=== PATIENT | male | born 1940 | race Caucasian/White ===

== ENCOUNTER 2024-02-18 09:10 | Emergency (ER) | payer OTHER, SELFPAY ==
[2024-02-18 09:13] VITALS: BP 143/80
--- NOTE | 2024-02-18 09:30 | ED.GENMED ---
History of Present Illness
General
Chief Complaint: Chest Pain
Time Seen by Provider: 02/18/24 09:30
Travel History
Have you had any contact with someone who has COVID-19?: No
Do you have any symptoms of coronavirus? Fever > 100 degrees, chills, cough, shortness of breath, sore throat, loss of taste or smell, muscle aches, or headache?: No
History of Present Illness
History of Present Illness:
HPI: Patient presents with chest discomfort. This is described as intermittent over the past week. He states it feels like 'like when you stick a finger in a electrical socket' and reports somewhat of a vibration type of sensation more to the left
side of the chest. He has no exertional symptoms. He has no shortness of breath. Earlier this morning he had a sensation almost like he was 'shocked'. He was recently started on Rinvoq for eczema and wonders if this could be a contributing
factor for his symptoms.
EXAM:
GENERAL: Well appearing in no distress
HEENT: Moist oral mucosa, somewhat hard of hearing
CARDIOVASCULAR: No murmurs, normal heart rate, regular rhythm, No chest wall tenderness
PULMONARY: No respiratory distress, breath sounds are clear and equal
ABDOMEN: Soft with no peritoneal signs, no tenderness
NEUROLOGIC: Excellent strength all extremities, no coordination deficits
PSYCHIATRIC: Appropriate mental status, normal insight and judgement
EXTREMITIES: Nontender, no edema, moves all extremities equally
SKIN: No rash, no lesions
TIME OF INITIAL ENCOUNTER: 9:30 AM
NUMBER AND COMPLEXITY OF PROBLEMS ADDRESSED AT THE ENCOUNTER
� Chronic conditions affecting care: Hyperlipidemia, prostate cancer, anxiety
� Acute Exacerbation and/or Progression of Chronic Illness: This is an acute problem
� Differential Diagnosis includes: Noncardiac chest pain, chest wall pain, ACS, highly doubt pulmonary etiology given lack of shortness of breath, paresthesias from electrolyte abnormality, medication reaction
AMOUNT AND/OR COMPLEXITY OF DATA TO BE REVIEWED AND ANALYZED
� I performed an independent evaluation of and my interpretation is:
EKG: Sinus 70, nonspecific ST abnormality, no significant change from 07/12/2019
CT:
X-rays:
Laboratory Studies: White count 8.6, hemoglobin 10.0, hemoglobin in 2019 was 12.1, chemistries unremarkable but total bili is up slightly at 1.9, troponin 0.025
Other:
� Review of other/old records: I reviewed records, the patient had 2 negative troponins in June 2019
� Clinical information was obtained by an independent historian: None needed
� Prescriptions/Medications Considered but not given:
� Further testing considered but not performed:
RISK OF COMPLICATIONS AND/OR MORBIDITY OR MORTALITY OF PATIENT MANAGEMENT
� Social determinants of health affecting care: Lives at home
� Discussion with other providers:
� Escalation of care including admission/observation vs risk of discharge considered: According to my reference, there is no report of paresthesias/chest pain regarding Rinvoq use. I favor more of a noncardiac etiology as he
describes the sensation as more of a vibration/shock sensation. He has no exertional symptoms. On reassessment at 11:10 AM, the patient reports some minimal discomfort but describes it also as 'almost gone or basically gone'. Since troponin is
slightly higher than prior we will check 1 more troponin. Second troponin is improved compared to prior and still within normal range. He has seen Dr. Moser in the past�[facility] [place] low risk chest pain hotline for follow-up.
Past History
Past History
ED Past Medical History: Hypercholesterolemia and Other (prostate CA, anxiety, vertigo, glaucoma)
ED Past Surgical History: Tonsilectomy and Other (ear surgery)
Social History
Tobacco: Non-smoker
Alcohol: Occasional
Drug: None
Personal: Single
Living: alone
Employment: Employed
Phy Exam
Physical Exam
Physical Exam:
See HPI
Scores
Heart Score for Chest Pain Patients
STEMI patient?: Not applicable
Course
Orders/Labs/Results
Orders:
Orders
02/18/24 09:15
EKG [Electrocardiogram (*1)] Urgent
Reason for Study: Chest Pain
EKG- Treatment ONCE
02/18/24 10:14
Complete Blood Count/With Diff Urgent
Comprehensive Metabolic Panel Urgent
Magnesium Urgent
Troponin I Urgent
02/18/24 11:19
Troponin I Urgent
Abnormal Lab Results
02/18/24
10:14
RBC 3.06 L 10^6/uL
(4.70-6.10)
Hgb 10.0 L g/dL
(13.0-18.0)
Hct 30.1 L %
(39.0-52.0)
MCV 98.4 H fL
(80.0-94.0)
MCH 32.7 H pg
(27.0-31.0)
Absolute Monos (auto) 0.9 H 10^3/uL
(0.1-0.6)
Monocytes % 10.9 H %
(1.7-9.3)
Chloride 108 H mmol/L
(98-107)
Glucose 100 H mg/dl
(70-99)
Total Bilirubin 1.9 H mg/dl
(0.2-1.3)
02/18/24 10:14
02/18/24 10:14
Vital Signs
Initial and Last Documented VS:
Initial Vital Signs
Temp Pulse Resp BP Pulse Ox
98.2 F 72 18 143/80 99
02/18/24 09:13 02/18/24 09:13 02/18/24 09:13 02/18/24 09:13 02/18/24 09:13
Last Documented Vital Signs
Temp Pulse Resp BP Pulse Ox
98.2 F 58 15 116/69 96
02/18/24 09:13 02/18/24 10:45 02/18/24 10:45 02/18/24 10:00 02/18/24 10:00
*Critical Care Note
Total Time (30-74mins, 75-104mins- exclusive of procedures): Not Applicable
ED Attending Note
-
Portions of this chart may have been created with voice recognition software.� Occasional wrong word or��sound alike� substitutions may have occurred due to the inherent limitations of voice recognition software.
Discharge Plan
Departure
Patient Disposition: Home (Routine Discharge)
Date of Disposition: 02/18/24
Time of Disposition: 11:54
Patient with high blood pressure during this ER visit?: Yes
Discharge Problem:
Chest pain
Instructions: Chest Pain CBC Follow Up
Prescriptions:
No Action
Aspirin
81 mg PO PRN PRN (Reason: when thinks about it )
Saw [place]
1 tab PO PRN PRN (Reason: as needed )
Simvastatin
5 mg PO DAILY
finasteride 5 MG tablet
5 mg PO DAILY
meclizine 25 MG tablet
25 mg PO Q8HPRN PRN (Reason: vertigo) Qty: 0 0RF
Referrals:
Jakob Mace MD [Family Provider] -
Stephanie Otero MD [Active] - Follow up in 2-3 days
Activity Restrictions/Additional Instructions:
I recommend you follow-up with Dr. Otero as well as your primary care doctor. Cardiac blood work showed no sign of heart attack and this was checked twice. Return here if worse.
Interventions
Interventions:
*Risk Screen - Suicide Last Done: 02/18/24 09:13
*Neglect/Abuse Screening Last Done: 02/18/24 09:13
*ED COVID-19 Vaccine History Last Done: 02/18/24 09:13
ED- Cardiac Assessment Last Done: 02/18/24 10:48
Discharge Date and Time
Print Language: FAROESE
[2024-02-18 09:33] VITALS: BP 168/90
[2024-02-18 10:00] VITALS: BP 116/69
[2024-02-18 10:23] LABS: % Basophils 0.3 % (0-2); % Eosinophils 1.2 % (0-6); % Immature Granulocytes 0.2 % (0-0.5); % Lymphocytes 22.8 % (20.5-51.1); % Monocytes 10.9 % (1.7-9.3); % Neutrophils 64.6 % (42.2-75.2); Absolute Eosinophils 0.1 10^3/uL (0-0.7); Absolute Monocytes 0.9 10^3/uL (0.1-0.6); Absolute Neutrophils 5.6 10^3/uL (1.4-6.5); Hematocrit 30.1 % (39.0-52.0); Mean Corp Hgb Conc. 33.2 g/dL (33.0-37.0); Mean Corpuscular Hgb 32.7 pg (27.0-31.0); Mean Corpuscular Volume 98.4 fL (80.0-94.0); Nucleated Red Blood Cells % 0 % (-); Platelet Count 223 10^3/uL (130-400); Red Blood Cell Count 3.06 10^6/uL (4.70-6.10); Red Cell Dist. Width 14.5 % (11.5-14.5); White Blood Cell Count 8.6 10^3/uL (4.8-10.8)
[2024-02-18 10:37] LABS: ALT (SGPT) 14 U/L (0-50); AST (SGOT) 23 U/L (17-59); Albumin 4.3 g/dl (3.5-5.0); Alkaline Phosphatase 56 U/L (38-126); Blood Urea Nitrogen 15 mg/dl (9-20); Calcium 9.4 mg/dl (8.4-10.2); Carbon Dioxide 27 mmol/L (22-30); Chloride 108 mmol/L (98-107); Glucose 100 mg/dl (70-99); Magnesium 2.2 mg/dl (1.6-2.3); Potassium 4.6 mmol/L (3.5-5.1); Sodium 142 mmol/L (135-145); Total Bilirubin 1.9 mg/dl (0.2-1.3); Total Protein 6.7 g/dl (6.3-8.2); eGFR > 60.00
[2024-02-18 10:46] LABS: Troponin I 0.025 ng/ml
[2024-02-18 11:00] VITALS: BP 112/60
[2024-02-18 11:46] VITALS: BP 143/72
[2024-02-18 12:00] VITALS: BP 130/67
== END 2024-02-18 12:30 | disposition home or self-care (01) ==
LOC: EMR 09:10
PROVIDERS: EMERGENCY PHYSICIAN Emergency Medicine; FAMILY PHYSICIAN Family Medicine
DX: R07.89 Other chest pain (principal); E78.00 Pure hypercholesterolemia, unspecified; F41.9 Anxiety disorder, unspecified; Z85.46 Personal history of malignant neoplasm of prostate
CPT/HCPCS: 99283; 80053; 83735; 84484; 85025; 93005

== ENCOUNTER → 2024-02-25 12:36 | Outpatient (REF) | payer OTHER, SELFPAY | LOC: RCS 12:36 | PROVIDERS: ATTENDING PHYSICIAN Nurse Practitioner; FAMILY PHYSICIAN Family Medicine | DX: R00.2 Palpitations (principal); R07.9 Chest pain, unspecified; I10 Essential (primary) hypertension; I34.0 Nonrheumatic mitral (valve) insufficiency | CPT/HCPCS: 93225; 93226 ==

== ENCOUNTER → 2024-03-03 11:57 | Outpatient (REF) | payer OTHER, SELFPAY | LOC: DHCBC/DCA 11:57 | PROVIDERS: ATTENDING PHYSICIAN Nurse Practitioner; FAMILY PHYSICIAN Family Medicine | DX: R00.2 Palpitations (principal); R07.9 Chest pain, unspecified; I10 Essential (primary) hypertension; I34.0 Nonrheumatic mitral (valve) insufficiency | CPT/HCPCS: 78452; 93017; A9500 ==

== ENCOUNTER → 2024-03-17 09:49 | Outpatient (REF) | payer OTHER, SELFPAY | LOC: HWRCS 09:49 | PROVIDERS: ATTENDING PHYSICIAN Nurse Practitioner; FAMILY PHYSICIAN Family Medicine | DX: R07.9 Chest pain, unspecified (principal); R00.2 Palpitations; I10 Essential (primary) hypertension; I34.0 Nonrheumatic mitral (valve) insufficiency | CPT/HCPCS: 93306 ==